=== PATIENT | male | born 1950 | race African-American/Black ===

== ENCOUNTER 2016-09-09 01:13 | Emergency (ER) | payer MEDICAID ==
[~2016-09-09] VITALS: Ht 190.5 cm; Wt 109.1 kg
[~2016-09-09 01:13] MED LIST: IBUP-1547 PO; LISI-662 PO; VERA240SR PO
[2016-09-09] MEDS ORDERED: HYDR25TA PO (01:30)
[2016-09-09] MEDS ORDERED: IPRATROPIUM BROMIDE 0.5 MG/2.5 ML NEB SOLUTION NEB ONE (03:00)
[2016-09-09] MEDS ORDERED: ALBUTEROL SULFATE 5 MG/ML 20 ML NEB SOLN [BULK] NEB ONE (03:00)
[2016-09-09] MEDS ORDERED: 0.9% SODIUM CHLORIDE 5 ML NEB SOLUTION NEB ONE (04:01)
[2016-09-09 04:29] VITALS: BP 135/78
== END 2016-09-09 05:11 | disposition home or self-care (01) ==
LOC: EMS 01:14
DX: J40 Bronchitis, not specified as acute or chronic (principal); I10 Essential (primary) hypertension
CPT/HCPCS: 71010; 94640; 99283; J7611

== ENCOUNTER 2018-01-23 22:58 | Emergency (ER) | payer MEDICARE, MEDICAID ==
[~2018-01-23] VITALS: Ht 190.5 cm; Wt 110.5 kg
[~2018-01-23 22:58] MED LIST changes: +HYDR25TA PO; -IBUP-1547 PO; +IBUP-2071 PO
[2018-01-23] MEDS ORDERED: INDO25CA16 PO (23:10)
[2018-01-24] MEDS ORDERED: KETOROLAC TROMETHAMINE 60 MG/2 ML VIAL IM ONE (01:15)
[2018-01-24 01:20] VITALS: BP 128/79
== END 2018-01-24 01:36 | disposition home or self-care (01) ==
LOC: EMS 22:59
DX: M10.9 Gout, unspecified (principal); I10 Essential (primary) hypertension; F17.210 Nicotine dependence, cigarettes, uncomplicated; Z79.899 Other long term (current) drug therapy
CPT/HCPCS: 36415; 84550; 96372; 99283; J1885

== ENCOUNTER 2018-02-03 04:37 | Emergency (ER) | payer MEDICARE, MEDICAID ==
[~2018-02-03] VITALS: Ht 190.5 cm; Wt 111.8 kg
[~2018-02-03 04:37] MED LIST changes: +INDO25CA16 PO
[2018-02-03] MEDS ORDERED: GuaiFENesin/D-METHORPHAN/PHENYLEPH 5 ML LIQUID ORAL.SYG PO ONE (06:30)
[2018-02-03 06:40] VITALS: BP 156/85
== END 2018-02-03 06:41 | disposition home or self-care (01) ==
LOC: EMS 04:37
DX: J40 Bronchitis, not specified as acute or chronic (principal); I10 Essential (primary) hypertension; Z79.899 Other long term (current) drug therapy

== ENCOUNTER 2018-02-12 01:59 | Emergency (ER) | payer MEDICARE, MEDICAID ==
[~2018-02-12] VITALS: Ht 190.5 cm; Wt 111.4 kg
[2018-02-12] MEDS ORDERED: ASPI81 PO (02:21)
[2018-02-12] MEDS ORDERED: ALBUTEROL SULFATE 2.5 MG/0.5 ML NEB SOLUTION NEB ONE (03:00)
[2018-02-12] MEDS ORDERED: IPRATROPIUM BROMIDE 0.5 MG/2.5 ML NEB SOLUTION NEB ONE (03:00)
[2018-02-12 03:21] LABS: EOSINOPHILS % (AUTO) 4.1 % (1.0-6.0); HEMATOCRIT 38.5 % (41-53); HEMOGLOBIN 13.4 g/dL (13.5-17.5); LYMPHOCYTES # (AUTO) 1.6 K/uL (1.0-4.8); LYMPHOCYTES % (AUTO) 17.5 % (22.0-44.0); MEAN CORPUSCULAR HEMOGLOBIN 28.8 pg (26.0-34.0); MEAN CORPUSCULAR HGB CONC 34.9 G/dL (31.0-37.0); MEAN CORPUSCULAR VOLUME 83 fL (80-100); MONOCYTES # (AUTO) 0.7 K/uL (0.1-1.0); MONOCYTES % (AUTO) 8.2 % (2.0-9.0); NEUTROPHILS # (AUTO) 6.3 K/uL (1.8-7.7); NEUTROPHILS % (AUTO) 69.2 % (40.0-70.0); PLATELET COUNT (AUTO) 174 K/uL (150-450); RED BLOOD CELL COUNT(AUTO) 4.66 MIL/uL (4.50-5.90); RED CELL DISTRIBUTION WIDTH 14.4 % (11.5-14.5)
[2018-02-12 03:51] LABS: INFLUENZA TYPE A NEGATIVE FOR TYPE A (NEGATIVE); INFLUENZA TYPE B NEGATIVE FOR TYPE B (NEGATIVE)
[2018-02-12 04:03] VITALS: BP 140/80
== END 2018-02-12 04:07 | disposition home or self-care (01) ==
LOC: EMS 02:00
DX: J98.01 Acute bronchospasm (principal); J40 Bronchitis, not specified as acute or chronic; I10 Essential (primary) hypertension; Z79.82 Long term (current) use of aspirin; Z79.899 Other long term (current) drug therapy
CPT/HCPCS: 87804; 94640